=== PATIENT | female | born 2000 | race Caucasian/White ===

== ENCOUNTER 2023-09-26 23:07 | Emergency (ER) | payer OTHER, SELFPAY ==
--- NOTE | ~2023-09-26 | XR_ITS ---
EXAMINATION: XR ANKLE, RIGHT CLINICAL INFORMATION: Injury. Pain. COMPARISON: None available. TECHNIQUE: Two views of the right ankle. FINDINGS: The bone mineralization is normal. The joint spaces are maintained. No fracture seen. There appears to be mild lateral soft tissue swelling. XR/XR ankle RT 2V IMPRESSION: Mild lateral soft tissue swelling. No fracture seen.
--- NOTE | ~2023-09-26 | XR_ITS ---
EXAMINATION: XR FOOT, RIGHT CLINICAL INFORMATION: Injury. Pain. COMPARISON: None available. TECHNIQUE: AP, lateral, and oblique views of the right foot. FINDINGS: The bones and soft tissues are normal. No fracture. Alignment is anatomic. Joint spaces are maintained. XR/XR foot RT 2V IMPRESSION: No significant abnormality identified.
[2023-09-26 23:32] VITALS: BP 123/64; PULSE 82; RESP 20; TEMP 36.6; O2SAT 97; BMI 18.8
[2023-09-27 00:59] VITALS: BP 118/70; PULSE 55; RESP 16; O2SAT 100
[2023-09-27] MEDS: Ibuprofen 600 MG TABLET PO (01:41)
--- NOTE | 2023-09-27 01:49 | ED_ITS ---
HPI - Extremity Injury (Lower) General Chief Complaint: Extremity Injury, Lower Stated Complaint: R Ankle Inj Time Seen by Provider: 09/27/23 01:13 Source: patient Mode of arrival: ambulatory Limitations: no limitations History of Present Illness HPI Narrative: Patient apparently jumped from the bed p.m. since then complaining of pain in the right ankle no other injury Related Data Previous Rx's Medication Instructions Recorded ibuprofen 600 mg tablet 600 mg PO Q6H PRN fever or pain 09/27/23 #30 tabs Allergies Allergy/AdvReac Type Severity Reaction Status Date / Time Sulfa (Sulfonamide Allergy Anaphylaxis Verified 09/26/23 23:31 Antibiotics) Review of Systems 2 Review of Systems: Yes all other systems are reviewed and are negative PMFSH Social History Social History Smoked in Last 30 Days: No Use of substances other than those prescribed or required for medical reasons: No Advance Directives: No Advance Directives Information Provided: Yes Patient : No Physical Exam 2 Vital Signs: Vital Signs: Last Vital Signs Temp 98 F 09/26/23 23:32 Pulse 55 09/27/23 00:59 Resp 16 09/27/23 00:59 BP 118/70 09/27/23 00:59 Pulse Ox 100 09/27/23 00:59 O2 Del Method Room Air 09/27/23 00:59 BMI result Body Mass Index 18.8 Extrem: Ankle/foot/toe images: 1. Soft tissue swelling with tenderness no deformity neurovascular intact Medications Administered Discontinued Medications Generic Name Dose Route Start Last Admin Trade Name Freq PRN Reason Stop Dose Admin Ibuprofen 600 mg 09/27/23 01:22 09/27/23 01:41 Ibuprofen 600 Mg Tablet PO 09/27/23 01:23 600 mg ONCE ONE Administration Medical Decision Making Medical Decision Making MDM Narrative: Patient's x-ray negative for fracture right ankle Jose wrap was applied given crutches for ambulation Independent Interpretation I performed an independent interpretation of an: Plain X-Ray Radiology Impression Discussion of test interpretation with radiology: I have reviewed the radiologist's reading. Discharge Plan Discharge Clinical Impression: Right ankle sprain Patient Disposition: Home, Self-Care Instructions: Ankle Sprain (ED) Additional Instructions: Jose wrap ,rest to the right ankle, use crutches for ambulation Ibuprofen for pain Prescriptions: New ibuprofen 600 mg tablet 600 mg PO Q6H PRN (Reason: fever or pain) Qty: 30 0RF Stand Alone Forms: Work/School Release
[2023-09-27 02:14] VITALS: BP 122/72; PULSE 62; RESP 18; TEMP 36.6; O2SAT 99
== END 2023-09-27 02:15 | disposition home or self-care (01) ==
PROVIDERS: Emergency Provider Internal Medicine
DX: S93.401A Sprain of unspecified ligament of right ankle, initial encounter (principal); W06.XXXA Fall from bed, initial encounter; Y93.9 Activity, unspecified; Y92.9 Unspecified place or not applicable; Y99.8 Other external cause status
CPT/HCPCS: 73600; 73620; 99283; 99284